=== PATIENT | female | born 1950 | race Caucasian/White ===

== ENCOUNTER 2020-08-13 15:27 | Inpatient (IN) | payer OTHER ==
[2020-08-13] VITALS (9 sets, daily range): BP systolic 113–125; BP diastolic 74–80
[~2020-08-13] VITALS: Ht 157.5 cm; Wt 72.4 kg
[~2020-08-13 15:27] MED LIST: ALBUTEROL2.5 MG/0.5 IH; BACTRIM DS TAB1 EAC1 PO; BROVANA15 MCG/2 M INH; DALIRESP250 MCG PO; ENOXAPARIN40 MG/0.1 SUBQ; FLEXERIL PO; GABAPENTIN 100100 MG PO; IPRAT-ALBUT 0.5-3 ML INH; KLOR-CON 1010 MEQ PO; LASIX 40 MG TAB40 MG PO; LEVAQUIN 500 M500 M2 PO; LIPITOR40 MG PO; LISINOPRIL20 MG; MAGNESIUM250 M1 PO; MOBIC15 MG PO; NORVASC10 MG PO; OXYCODONE HCL 55 MG PO; PREDNISONE 10 M10 M1 PO; PREDNISONE 10 M10 MG PO; PREDNISONE 20 M20 MG PO; PREDNISONE50 MG PO; PROAIR HFA8.5 GM INH; QUINAPRIL 20 MG20 MG PO; SPIRIVA INH; STELARA45 MG/0.5; SYMBICORT160 MCG/4. INH; TRAMADOL 50 MG50 MG PO; VENTOLIN HFA 1818 GM INH; VITAMIN D3125 MC2 PO
--- NOTE | 2020-08-13 17:36 | NUR ---
PATIENT ARRIVED TO UNIT AT 1721. PATIENT ON LEVOPHED GTT @ 4, PRECEDEX GTT @1.4, VERSED GTT @7 & FENTANYL @100. DR MCCORMICK PAGED, PAGED BACK AT 1738. DR. MCCORMICK TO COME SEE PATIENT. CXR ORDERED.
[2020-08-13 18:48] LABS: HEMATOCRIT 26.4 % (37.0-47.0); HEMOGLOBIN 8.8 gm/dL (12.0-15.0); MCHC 33.2 g/dL (28.0-37.0); MCV 87.4 fL (80.0-100.0); PLATELET COUNT 101 thou/uL (150-400); RBC 3.02 mil/uL (4.20-5.00); RDW 14.2 % (10.5-14.5); WBC 24.6 thou/uL (4.0-11.0)
[2020-08-13 19:04] LABS: ALBUMIN 2.5 g/dL (3.4-5.0); CALCIUM 7.5 mg/dL (8.5-10.1); CREATININE 0.4 mg/dL (0.6-1.0); POTASSIUM 4.1 mmol/L (3.5-5.1); TOTAL BILIRUBIN 0.5 mg/dL (0.2-1.0); TOTAL PROTEIN 4.8 g/dL (6.4-8.2)
[2020-08-13 19:16] LABS: ABSOLUTE NEUTROPHILS 23.9 thou/uL (1.4-8.2)
[2020-08-14] VITALS (14 sets, daily range): BP systolic 67–141; BP diastolic 47–87
[2020-08-14 03:15] LABS: HEMATOCRIT 25.3 % (37.0-47.0); HEMOGLOBIN 8.3 gm/dL (12.0-15.0); LYMPHOCYTES 2.9 % (24.0-44.0); MCH 28.7 pg (26.0-34.0); MCHC 32.8 g/dL (28.0-37.0); MCV 87.6 fL (80.0-100.0); MONOCYTES 2.2 % (1.0-8.0); PLATELET COUNT 91 thou/uL (150-400); POLYS 94.9 % (36.0-66.0); RBC 2.89 mil/uL (4.20-5.00); RDW 14.2 % (10.5-14.5); WBC 15.8 thou/uL (4.0-11.0)
--- NOTE | 2020-08-14 03:17 | NUR ---
Patient intubated and sedated. Temp 94.3, mc hagger on & now 97.4.new patient consult called to Dr. Magallanes. reviewing patient chart, new orders given and implemented, plans for a Bronchoscopy in AM.KUB results shows gut full of stool, Relistor given per orders, no BM noted.OG to LIS.
[2020-08-14 03:21] LABS: ALBUMIN 2.2 g/dL (3.4-5.0); CALCIUM 7.6 mg/dL (8.5-10.1); CREATININE 0.5 mg/dL (0.6-1.0); MAGNESIUM 2.1 mg/dL (1.8-2.4); TOTAL BILIRUBIN 0.5 mg/dL (0.2-1.0); TOTAL PROTEIN 4.6 g/dL (6.4-8.2)
[2020-08-14 04:02] LABS: PLATELET ESTIMATE DECREASED
--- NOTE | 2020-08-14 17:18 | NUR ---
ASSUMED CARE @ 0700 08/14/20, PT ASSESSMENTS AND VSS COMPLETE PER ICU PROTOCOL. PT ENCOUNTERED ON PRECEDEX, FENTANYL AND VERSED FOR VENT MANAGMENT. FIOS DOWN TO 90% FROM 100%, PT ABLE TO TOLERATE SATS IN 99-100. BRONCH PERFORMED THIS AM, NO COMPLICATIONS NOTED. DR DUGAN ROUNDED THIS AM, ORDERS RECIEVED TO INCREASED LOVENOX DOSE TO 1MG/KG PER THERAPEUTIC DOSE, PHARM Kevan JOSHI CALLED TO CLARIFY. SISTER THEO SPEAR HERE FROM 1130 -1600 TO VISIT WITH THE PT.
[2020-08-15] VITALS (11 sets, daily range): BP systolic 85–161; BP diastolic 55–82
--- NOTE | 2020-08-15 03:32 | NUR ---
PT IS SEDATED WITH VERSED, FENTANYL, AND PRECEDEX. SHE DOES RESPOND SLIGHTLY TO NOXIOUS STIMULI. BILATERAL WRIST RESTRAINTS IN PLACE. LEVO GTT TITRATED DOWN TO 1MCG/MIN TO KEEP MAP >60. PT HAS GENERALIZED EDEMA, PARTICULARLY IN BILATERAL ARMS. UO ADEQUATE VIA WAGNER. TOLERATING VENT WELL; REMAINS ON 80% FIO2. REPOSITIONED TO PREVENT SKIN BREAKDOWN. SEBLE HUGGAR IN PLACE ORAL TEMP WAS CONSISTENTLY AROUND 96.5. PROGRESSING VERY SLOWLY TOWARD POC GOALS. WILL CONTINUE TO MONITOR.
--- NOTE | 2020-08-15 11:10 | NUR ---
Recommend tube feed of vital AF 1.2 at goal of 60ml/hr. Defer fluid needs to physician
--- NOTE | 2020-08-15 12:00 | NUR ---
PT ON SEDATION VACATION SINCE O800. PT JUST COMPLETED RESP TREATMENT PER RT. THICK MODERATE AMOUNT SECRETIONS SUCTIONED, RESP LABORED, RR-32, SBP IN 200'S. NO RELIEF AFTER SUCTIONING, REPOSITIONING. SEDATION RESTARTED FOR PT COMFORT, SEE MARS FOR DETAILS. SUCTIONED AGAIN CONTINUING TO OBTAIN THICK SECRETIONS.
--- NOTE | 2020-08-15 15:16 | NUR ---
chart review. pt intubated, tf for nutritional support. unable to visit with her. cm spoke with sister fabricio via phone call. intro to cm and transition of care ie rehab and hh. sister reported, she lives alone in house. has cane and walker from broken leg last june. she independent at home. had hh in past. not sure who it was with but then she went to outpt therapy for leg. out aunt and cousin live 2 miles away and visit her at home. then i am about 10 miles away. she going to quiet smoking now, she was trying but then covid hit and little stressful for everyone. thank you for calling. we where shocked at the visitor policy here since came from [facility] and here is very different, would have been nice to know that before coming here. i will be the designated visitor"/sister fabricio. will cont following as needed for dc needs.
[2020-08-15 16:54] LABS: BE(vivo) 5.2 mmol/L (-2 to +3); HCO3 29.5 mmol/L (22.0-26.0); PCO2 41.9 mmHg (35.0-45.0); pH 7.465 (7.360-7.450); sO2 94.7 % (92.0-98.0)
--- NOTE | 2020-08-15 17:47 | NUR ---
RETURNED CALL TO DENTON, GRAND-DAUGHTER AT 1400. UPDATED ON PT STATUS INCLUDING DECREASING OF FI02 AND PEEP ON VENT, SEDATION VACATION FOR SEVERAL HOURS PRIOR TO RESTARTING SEDATION, OBTAINED THICK SECRETIONS PER ETT SEVERAL TIMES THROUGHOUT SHIFT. SMALL AMOUNT PROGRESS WITHIN LENGTHY RECOVERY PROCESS REINFORCED TO DENTON. QUESTIONS ANSWERED TO UNDERSTANDING. PT RESPONDED TO RELISTOR- HAD LARGE JELLY LIKE STOOL. GOWN, ENTIRE BED, SCDS CHANGED, BATH COMPLETED. L RADIAL AJ OOZING- DRESSING REAPPLIED, ARM BOARD REMOVED, PRESSURE HELD @ 5 MIN, GUAZE PRESSURE DRESSING AND NEW WRIST RESTRAINT REAPPLIED. GROIN MOIST AND REDDENED, OPEN TO AIR, FAN CIRCULATING IN ROOM.
--- NOTE | 2020-08-15 19:50 | NUR ---
RECEIVED PATIENT REPORT FROM CHERELLE BURTON. ASSUMED PATIENT CARE AT THIS TIME.
[2020-08-16] VITALS (46 sets, daily range): BP systolic 89–172; BP diastolic 48–91
--- NOTE | 2020-08-16 09:47 | NUR ---
PATIENT CURRENTLY ON CPAP TRAIL, TOLERATING WELL. LEFT RADIAL AJ DISCONTINUED. CLOTTED OFF, NOT FLUSING, INACCURATE READINGS. PT REMAINS LIGHTLY SEDATED ON PRECEDEX AND FENTANYL GTT FOR VENT MANAGEMENT.
[2020-08-16 10:38] LABS: BE(vivo) 6.2 mmol/L (-2 to +3); HCO3 30.4 mmol/L (22.0-26.0); PCO2 42.5 mmHg (35.0-45.0); PO2 89.7 mmHg (80.0-100.0); pH 7.473 (7.360-7.450); sO2 97.3 % (92.0-98.0)
[2020-08-16 14:41] LABS: HEMATOCRIT 26.6 % (37.0-47.0); MCH 29.4 pg (26.0-34.0); MCHC 33.7 g/dL (28.0-37.0); MCV 87.1 fL (80.0-100.0); RBC 3.06 mil/uL (4.20-5.00); RDW 14.5 % (10.5-14.5); WBC 9.8 thou/uL (4.0-11.0)
[2020-08-16 14:49] LABS: CALCIUM 7.8 mg/dL (8.5-10.1); CREATININE 0.3 mg/dL (0.6-1.0); POTASSIUM 3.7 mmol/L (3.5-5.1)
[2020-08-16 15:36] LABS: PHOSPHORUS 2.1 mg/dL (2.5-4.9)
--- NOTE | 2020-08-16 15:45 | NUR ---
SPOKE WITH DR. GARCIA ABOUT PATIENTS HTN, ORDERS GIVEN FOR HYDRALAZINE PRN FOR SBP>160. MEDICATION ADMINISTERED AND IMMEDIATELY PATIENT BECAME TACHYCARDIC, TACHYPNEIC, DIAPHORETIC, FLUSHED AND EYES SWOLLEN. PROVIDER NOTIFED. ORDERS FOR ONE TIME DOSE ATIVAN, STEROID AND BENADYRL GIVEN. STAT LABS AND EGK DONE. DR. GRANT NOTIFIED WELL. AFTER ADMINISTRATION OF MEDICATIONS PATIENT NOW SINUS RHYTHM AND LESS TACHYPENIC. FAMILY UPDATED. HYDRALAZINE CODED AND ALLERGY AND DISCONTINUED FROM EMAR
[2020-08-17] VITALS (33 sets, daily range): BP systolic 69–151; BP diastolic 44–87
[2020-08-17 05:28] LABS: ABSOLUTE NEUTROPHILS 6.1 thou/uL (1.4-8.2); HEMATOCRIT 21.9 % (37.0-47.0); HEMOGLOBIN 7.4 gm/dL (12.0-15.0); LYMPHOCYTES 2.9 % (24.0-44.0); MCH 29.6 pg (26.0-34.0); MCHC 33.7 g/dL (28.0-37.0); MCV 87.9 fL (80.0-100.0); MONOCYTES 2.5 % (1.0-8.0); PLATELET COUNT 85 thou/uL (150-400); POLYS 94.6 % (36.0-66.0); RBC 2.49 mil/uL (4.20-5.00); RDW 14.8 % (10.5-14.5); WBC 6.5 thou/uL (4.0-11.0)
[2020-08-17 05:34] LABS: BE(vivo) 2.5 mmol/L (-2 to +3); HCO3 26.7 mmol/L (22.0-26.0); PCO2 40.1 mmHg (35.0-45.0); PO2 82.8 mmHg (80.0-100.0); pH 7.442 (7.360-7.450); sO2 96.5 % (92.0-98.0)
[2020-08-17 05:44] LABS: ALBUMIN 1.6 g/dL (3.4-5.0); CALCIUM 6.8 mg/dL (8.5-10.1); CREATININE 0.4 mg/dL (0.6-1.0); MAGNESIUM 1.9 mg/dL (1.8-2.4); POTASSIUM 3.5 mmol/L (3.5-5.1); TOTAL BILIRUBIN 0.4 mg/dL (0.2-1.0)
--- NOTE | 2020-08-17 07:36 | EKG ---
[facility] [place] [address] [place] [address] ELECTROCARDIOGRAM REPORT Name: REBECCA CLAIRE Room #: 247-P ADM IN M.R.#: [id number] Admission: 08/13/20 Attend Phys: Christopher Kiser MD Discharge: Date of : 54 Report #: [id number] THIS REPORT FOR: cc: Allison Gilliam Stephanie P. DO Santiago, Patrick MD [facility] ~ THIS REPORT FOR: //name// [facility] Test Date: 2020-08-16 Test Time: 15:10:34 Pat Name: REBECCA CLAIRE Department: Room: 247 P Gender: F Plant Custodian: Davonte KIRK : 1950 Requested By: Vidal Jamison Order Number: [id number] MD: Pipo Barber Measurements Intervals [place] Rate: 120 P: 89 WI: 126 QRS: 77 QRSD: 91 T: 58 QT: 306 QTc: 433 Interpretive Statements Sinus tachycardia Ventricular premature complex Aberrant conduction of SV complex(es) Low voltage, extremity and precordial leads No previous ECG available for comparison Electronically Signed On 08-17-2020 7:36:19 CDT by Pipo Barber [email or web address] <ELECTRONICALLY SIGNED> By: Pipo Barber MD, FACC 08/17/20 0736 1510 Pipo Barber MD, FAC /EPI
--- NOTE | 2020-08-17 07:37 | NUR ---
ASSESSMENTS CHARTED, MEDS CHARTED GIVEN. PATIENT STILL ON VENT, BOLUS TUBE FEED WITH WATER BOLUS Q6. RESTRAINTS IN PLACE. FALL PRECAUTIONS IN PLACE.
--- NOTE | 2020-08-17 11:39 | NUR ---
ON THE VENT WITH LIGHT SEDATION, DURING SEDATION VACATION PATIENT GOT TACHYCARDIC AND TACHYPNIC AND RESTLESS. HYPOTENSIVE AND STARTED ON LOW DOSE LEVO GTT FOR BP SUPPORT. OGT WITH BOLUS FEEDINGS Q4HRS. DESIGNATED VISITOR WAS HERE EARLIER AND WAS UPDATED BY RN.
[2020-08-17 15:00] LABS: % SATURATION 46 % (20-39); IRON 63 ug/dL (50-170); TIBC 136 ug/dL (250-450)
[2020-08-17 15:29] LABS: FOLIC ACID 11.8 ng/mL (8.6-58.9)
--- NOTE | 2020-08-17 19:18 | NUR ---
PT NOT PROGRESSING TOWARDS GOALS, UNABLE TO CPAP TODAY. NOT FOLLOWING COMMANDS CONSISTANTLY.
[2020-08-18] VITALS (28 sets, daily range): BP systolic 78–139; BP diastolic 39–88
[2020-08-18 04:07] LABS: BE(vivo) 4.1 mmol/L (-2 to +3); HCO3 27.7 mmol/L (22.0-26.0); PCO2 37.6 mmHg (35.0-45.0); PO2 58.1 mmHg (80.0-100.0); pH 7.485 (7.360-7.450); sO2 92.2 % (92.0-98.0)
[2020-08-18 05:44] LABS: BASOPHILS 0.1 % (0.0-2.0); HEMATOCRIT 25.5 % (37.0-47.0); HEMOGLOBIN 8.5 gm/dL (12.0-15.0); LYMPHOCYTES 3.5 % (24.0-44.0); MCHC 33.2 g/dL (28.0-37.0); MCV 87.4 fL (80.0-100.0); MONOCYTES 4.1 % (1.0-8.0); PLATELET COUNT 106 thou/uL (150-400); POLYS 92.3 % (36.0-66.0); RBC 2.92 mil/uL (4.20-5.00); RDW 15.4 % (10.5-14.5); WBC 9.7 thou/uL (4.0-11.0)
[2020-08-18 05:51] LABS: ALBUMIN 2.6 g/dL (3.4-5.0); CALCIUM 7.9 mg/dL (8.5-10.1); CREATININE 0.4 mg/dL (0.6-1.0); MAGNESIUM 2.1 mg/dL (1.8-2.4); POTASSIUM 3.5 mmol/L (3.5-5.1); TOTAL BILIRUBIN 0.5 mg/dL (0.2-1.0)
[2020-08-18 11:36] LABS: BE(vivo) 5.1 mmol/L (-2 to +3); HCO3 29.5 mmol/L (22.0-26.0); PCO2 42.7 mmHg (35.0-45.0); PO2 65.3 mmHg (80.0-100.0); pH 7.457 (7.360-7.450); sO2 93.7 % (92.0-98.0)
--- NOTE | 2020-08-18 16:15 | NUR ---
PT WITH LOW URINE OUTPUT, DR. DUGAN AND DR. GRANT AWARE. ONETIME DOSE OF IV LASIX AND ONETIME DOSE OF ALBUMIN GIVEN WITH NOT MUCH IMPROVEMENT. ORDERS TO EXCHANGE PICC LINE FROM RIGHT UPPER ARM TO LEFT UPPER ARM. CONSULT FOR GENERAL SURGERY, DR. EVERETT SPOKE WITH PATIENTS FAMILY ABOUT TRACH/PEG PLACEMENT. PER FAMILY REQUEST WOULD LIKE TO WAIT UNTIL SATURDAY. DR. EVERETT AWARE.
--- NOTE | 2020-08-18 16:38 | NUR ---
cm returned call to daughter fabricio [phone]. she wanted to know if visiting rules are ever able to be changed allowing like 2 people to visit a the same time, asking because my brother would like to be her on saturday when mom supposed to get her trach and peg. if you could ask and let me know that would be great, thanks for retuning my call per fabricio. cm passed on question to cm tumbling and rolling supervisor. will cont following as needed for dc needs.
--- NOTE | 2020-08-18 19:58 | NUR ---
RUE PICC DISCONTINUED. NEW PICC PLACED TO LUE BASILIC VEIN. RISK, BENEFITS, AND ALTERNATIVE TREATMENT DISCUSSED WITH THE PATIENT'S FAMILY. CONSENT OBTAINED. TRIPLE LUMEN 5FR PICC PLACED TO LUE BASILIC VEIN. ONE STICK AND NO COMPLICATIONS. PATIENT TOLERATED WELL. PICC LENGTH =38CM. EXT=1CM. CHEXT XRAY CONFIRMED PLACEMENT WITH TIP OF PICC IN DISTAL SVC. ROLL UP MACHINE OPERATOR NOTIFIED OKAY TO USE PICC.
[2020-08-19] VITALS (38 sets, daily range): BP systolic 90–164; BP diastolic 49–89
--- NOTE | 2020-08-19 02:40 | NUR ---
ASSESSMENT: PT REMAIN ALERT, PRECIADO, FOLLOW SIMPLE COMMANDS. PUPILS EQUAL/REACTIVE. SR PER MONITOR. AFEBRILE. US OF KIDNEYS DONE. WAGNER PATENT WITH ADEQUATE AMTS OF UO. 2000 ML WAS EMPTIED AT THE BEGINNING OF THE SHIFT AND 2000 ML MORE AT APPROXIMATELY 0200. VENT SETTINGS: TV-500 RATE-14 PEEP-5 FIO2 40%. TOLERATING BOLUS FEEDINGS PER OG TUBE. NO BM'S THUS FAR. UPPER EXTREMITIES WEEPING, ELEVATED ON PILLOWS. POSSIBLE TRACH/PEGGED ON SATURDAY. CAROLYN PICC PATENT IN ALL PORTS. SLOW PROGRESS, WILL CONTINUE TO MONITOR.
[2020-08-19 05:52] LABS: HEMATOCRIT 24.1 % (37.0-47.0); HEMOGLOBIN 7.9 gm/dL (12.0-15.0); MCH 29.1 pg (26.0-34.0); MCV 88.4 fL (80.0-100.0); RBC 2.73 mil/uL (4.20-5.00); RDW 15.4 % (10.5-14.5); WBC 8.2 thou/uL (4.0-11.0)
[2020-08-19 06:19] LABS: CREATININE 0.4 mg/dL (0.6-1.0); POTASSIUM 3.2 mmol/L (3.5-5.1)
--- NOTE | 2020-08-19 15:04 | NUR ---
pt remains intubated with tf for nutritional support. possible trach and peg on saturday, cm returned phone call to daughter fabricio who still wants to know if her brother can come to surgery waiting room for surgery and when giving all good he will leave. mane sent to cm furnace room supervisor and cno. cm spoke with or and she not down for trach peg on saturday. cm spoke with bedside nurse who states surgeon say saturday or sat for trach and peg.
--- NOTE | 2020-08-19 16:17 | NUR ---
TALKED TO PATIENT DPOA SISTER ANIKA. ANIKA ASKED IF PATIENT'S SON ABIMBOLA CAN COME ON THE DAY OF SURGERY TO THE HOSPITAL AND WAIT IN THE SURGERY WAITING ROOM. AFTER DISCUSSING WITH CUTTING MACHINE TENDER AND LEAD BLENDER, ANIKA AND ZEESHAN BOTH WERE INFORMED THAT PT'S SON ABIMBOLA CAN COME TO THE HOSPITAL ON THE DAY OF SURGERY AND SIT IN THE SURGERY WAITING ROOM. SINCE ABIMBOLA IS NOT THE DESIGNATED VISITOR, HE WONT BE ABLE TO COME TO ICU. 2 PEOPLE ARE NOT ALLOWED IN THE SURGERY ROOM AT THE SAME TIME. SO ZEESHAN CAN VISIT ONLY AFTER ABIMBOLA LEAVES THE HOSPITAL.
--- NOTE | 2020-08-19 18:40 | NUR ---
PT FOLLOWING COMMANDS. PT CPAP FROM 1430 TO 1721. PT TOLERATED WELL. PT OFF VERSED FOR SEDATION. PT CALM. STARTED CONTINUOUS TUBE FEED. CTA THIS AM. PLAN FOR TRACH/PEG ON SATURDAY-NOT SCHEDULED YET THE FAMILY WANTS TO SEE HOW THE PATIENT DOES OVER THE WEEKEND.
[2020-08-20] VITALS (24 sets, daily range): BP systolic 112–145; BP diastolic 62–84
[2020-08-20 05:29] LABS: BE(vivo) 7.7 mmol/L (-2 to +3); HCO3 30.3 mmol/L (22.0-26.0); PCO2 34.1 mmHg (35.0-45.0); PO2 111.7 mmHg (80.0-100.0); pH 7.566 (7.360-7.450); sO2 98.6 % (92.0-98.0)
[2020-08-20 06:28] LABS: ABSOLUTE NEUTROPHILS 5.8 thou/uL (1.4-8.2); BASOPHILS 0.1 % (0.0-2.0); EOSINOPHILS 0.2 % (0.0-3.0); HEMATOCRIT 22.7 % (37.0-47.0); HEMOGLOBIN 7.7 gm/dL (12.0-15.0); MCH 29.8 pg (26.0-34.0); MCV 87.8 fL (80.0-100.0); MONOCYTES 2.9 % (1.0-8.0); PLATELET COUNT 63 thou/uL (150-400); POLYS 87.8 % (36.0-66.0); RBC 2.58 mil/uL (4.20-5.00); RDW 15.5 % (10.5-14.5); WBC 6.6 thou/uL (4.0-11.0)
[2020-08-20 06:50] LABS: ALBUMIN 2.5 g/dL (3.4-5.0); CALCIUM 8.4 mg/dL (8.5-10.1); CREATININE 0.3 mg/dL (0.6-1.0); MAGNESIUM 1.9 mg/dL (1.8-2.4); POTASSIUM 3.4 mmol/L (3.5-5.1); TOTAL BILIRUBIN 0.7 mg/dL (0.2-1.0); TOTAL PROTEIN 4.7 g/dL (6.4-8.2)
--- NOTE | 2020-08-20 21:26 | NUR ---
Pt lightly sedated with Precedex and Fentanyl infusions. Pt does follow commands but has generalized weakness. VSS. Tolerating tube feedings. Daughter (Franchesca) at bedside much of the day. Pt did not tolerate CPAP for more than a few minutes before becoming tachypnic. Continue to supprt and work toward goals. Report given to oncoming RN.
[2020-08-21] VITALS (37 sets, daily range): BP systolic 76–159; BP diastolic 39–94
[2020-08-21 05:30] LABS: BE(vivo) 9.1 mmol/L (-2 to +3); HCO3 32.9 mmol/L (22.0-26.0); PCO2 41.8 mmHg (35.0-45.0); PO2 106.5 mmHg (80.0-100.0); pH 7.514 (7.360-7.450); sO2 98.3 % (92.0-98.0)
[2020-08-21 06:02] LABS: ABSOLUTE NEUTROPHILS 5.5 thou/uL (1.4-8.2); BASOPHILS 0.2 % (0.0-2.0); EOSINOPHILS 0.3 % (0.0-3.0); HEMATOCRIT 21.6 % (37.0-47.0); HEMOGLOBIN 7.2 gm/dL (12.0-15.0); LYMPHOCYTES 9.4 % (24.0-44.0); MCH 29.6 pg (26.0-34.0); MCHC 33.4 g/dL (28.0-37.0); MCV 88.4 fL (80.0-100.0); MONOCYTES 2.9 % (1.0-8.0); PLATELET COUNT 59 thou/uL (150-400); POLYS 87.2 % (36.0-66.0); RBC 2.44 mil/uL (4.20-5.00); RDW 15.7 % (10.5-14.5); WBC 6.3 thou/uL (4.0-11.0)
[2020-08-21 06:16] LABS: ALBUMIN 2.2 g/dL (3.4-5.0); CALCIUM 7.6 mg/dL (8.5-10.1); TOTAL BILIRUBIN 0.6 mg/dL (0.2-1.0); TOTAL PROTEIN 4.6 g/dL (6.4-8.2)
[2020-08-21 06:24] LABS: CREATININE 0.2 mg/dL (0.6-1.0)
--- NOTE | 2020-08-21 14:40 | NUR ---
Low urine output. Call placed to Dr Jamison. Also clarified possible blood transfusion. Orders received for bladder scan and CBC.
--- NOTE | 2020-08-21 15:15 | NUR ---
Bladder scan showed 902 ml of urine in bladder. Wiley flushed and balloon let down and reinflated. Wiley began draining better. Will continue to monitor output and rescan.
[2020-08-21 16:33] LABS: HEMOGLOBIN 7.7 gm/dL (12.0-15.0); MCH 29.5 pg (26.0-34.0); MCHC 33.5 g/dL (28.0-37.0); MCV 88.1 fL (80.0-100.0); RBC 2.61 mil/uL (4.20-5.00); RDW 15.5 % (10.5-14.5); WBC 7.7 thou/uL (4.0-11.0)
--- NOTE | 2020-08-21 18:30 | NUR ---
Bladder scan repeated with < 100 ml this time. 1100 ml of urine from resendez since catheter flushed. Pt currently resting. VSS. One stool this shift. Specimen was discarded in dirty linen before sample was obtained for occult blood. Repeat Hgb came back 7.7.
[2020-08-22] VITALS (72 sets, daily range): BP systolic 64–189; BP diastolic 35–96
--- NOTE | 2020-08-22 05:56 | NUR ---
Patient progressing towards plan of care as evidenced by plan for possible trach and peg on Saturday. Patient able to follow commands and interact with nursing staff. Patient tolerating tube feeding and sedation as documented. Nurse to continue to monitor patient status.
--- NOTE | 2020-08-22 08:45 | NUR ---
discussed risks and benefits of 08/22 thoracentesis and 08/23 trach/peg placement. answered questions, obtained telephone consent. pt transferred from [facility], per phone call requested copy of dpoa. Agatha, medical records stated not scanned into their system, unavailable. returned call to Camille HEMPHILL requesting copy. She stated she would go to her sister's residence to obtain copy.
--- NOTE | 2020-08-22 10:58 | NUR ---
pt going to have thoracentesis today with possible trach and peg tomorrow. bedside nurse has already spoke with fabircio and family about 1 visitor rule during covid.
[2020-08-22 11:41] LABS: CLARITY CLEAR; COLOR YELLOW; SOURCE LEFT CHEST; TOTAL VOLUME 60 mL
[2020-08-22 12:28] LABS: BF NUCLEATED CELLS 243 /mm3; BF RBC 130 /mm3
[2020-08-22 13:15] LABS: BF MACROPHAGE 11 %; BF NEUTROPHILS 65 %
[2020-08-22 15:41] LABS: SOURCE LEFT CHEST
--- NOTE | 2020-08-22 15:51 | EKG ---
[facility] [address] [address] ELECTROCARDIOGRAM REPORT Name: REBECCA CLAIRE Room #: 245-P ADM IN M.R.#: [id number] Admission: 08/13/20 Attend Phys: Christopher Kiser MD Discharge: Date of : 54 Report #: [id number] THIS REPORT FOR: cc: Allison Gilliam Stephanie P. DO Santiago, Patrick MD [facility] ~ THIS REPORT FOR: //name// [facility] Test Date: 2020-08-22 Test Time: 14:54:23 Pat Name: REBECCA CLAIRE Department: Room: 245 P Gender: F Wind Operations Supervisor: MYRA : 1950 Requested By: Vidal Jamison Order Number: [id number] : Pipo Barber Measurements Intervals [place] Rate: 72 P: WI: QRS: 92 QRSD: 102 T: 84 QT: 380 QTc: 416 Interpretive Statements NSR Low voltage, extremity and precordial leads Nonspecific T abnrm, anterolateral leads Compared to ECG 08/16/2020 15:10:34 Right-axis deviation now present Sinus tachycardia no longer present Ventricular premature complex(es) no longer present Aberrant conduction of supraventricular beat(s) no longer present Electronically Signed On 08-22-2020 15:51:28 CDT by Pipo Barber [email or web address] <ELECTRONICALLY SIGNED> By: Pipo Barber MD, [facility] 08/22/20 1551 1454 1454 Pipo Barber MD, [facility] /EPI
[2020-08-23] VITALS (89 sets, daily range): BP systolic 111–158; BP diastolic 62–87
[2020-08-23 06:45] LABS: HEMATOCRIT 20.2 % (37.0-47.0); HEMOGLOBIN 6.8 gm/dL (12.0-15.0); MCHC 33.6 g/dL (28.0-37.0); RBC 2.29 mil/uL (4.20-5.00); WBC 7.2 thou/uL (4.0-11.0)
[2020-08-23 06:46] LABS: MCH 29.6 pg (26.0-34.0); MCV 88.1 fL (80.0-100.0); RDW 15.6 % (10.5-14.5)
[2020-08-23 07:02] LABS: CALCIUM 8.4 mg/dL (8.5-10.1); CREATININE 0.3 mg/dL (0.6-1.0); POTASSIUM 3.9 mmol/L (3.5-5.1)
[2020-08-23 08:51] LABS: HEMOGLOBIN 6.7 gm/dL (12.0-15.0); MCHC 33.6 g/dL (28.0-37.0); RBC 2.27 mil/uL (4.20-5.00)
[2020-08-23 08:52] LABS: MCH 29.7 pg (26.0-34.0); MCV 88.3 fL (80.0-100.0); RDW 15.7 % (10.5-14.5); WBC 6.7 thou/uL (4.0-11.0)
--- NOTE | 2020-08-23 12:07 | NUR ---
PATIENT LEFT UNIT FOR SURGERY AROUND 1037. PATIENT RETURNED TO UNIT AROUND 1200. PATIENT STILL DROWSY.
[2020-08-24] VITALS (40 sets, daily range): BP systolic 106–154; BP diastolic 55–89
[2020-08-24 06:13] LABS: HEMATOCRIT 25.6 % (37.0-47.0); MCH 30.4 pg (26.0-34.0); MCHC 34.2 g/dL (28.0-37.0); MCV 88.8 fL (80.0-100.0); RBC 2.88 mil/uL (4.20-5.00); WBC 6.3 thou/uL (4.0-11.0)
[2020-08-24 06:16] LABS: CALCIUM 8.1 mg/dL (8.5-10.1); CREATININE 0.3 mg/dL (0.6-1.0)
[2020-08-24 06:30] LABS: HEMOGLOBIN 8.7 gm/dL (12.0-15.0)
--- NOTE | 2020-08-24 06:51 | NUR ---
Patient trached and pegged yesterday and did well throughout the night. Pt on Fentanyl and Precedex gtt for comfort only. Vital signs remain stable. Pt tolerating tube feeding and up to 40mL/hr with a goal of 60mL/hr. Pt remains in restraints. Skin intact but annalise area still very excoriated. PEG and trach sites still fresh with dried blood around the site. Pt was afebrile throughout the night with no signs of infection. Pt has very flat affect and seems withdrawn. This RN gave report to JOSEPHINE Soto.
[2020-08-24 11:18] LABS: BE(vivo) 4.9 mmol/L (-2 to +3); HCO3 28.7 mmol/L (22.0-26.0); PCO2 39.1 mmHg (35.0-45.0); PO2 99.3 mmHg (80.0-100.0); pH 7.483 (7.360-7.450); sO2 97.9 % (92.0-98.0)
--- NOTE | 2020-08-24 12:06 | PATH ---
[facility] [address] [place] [address] PATHOLOGY RPT PROCEDURE Name: REBECCA CLAIRE Room #: 245-P ADM IN M.R.#: [id number] Admission: 08/13/20 Date of : 54 Discharge: Report #: [id number] Path Case #: [id number] Note [facility] Accession Number: [id number] TESTS RESULT FLAG UNITS REF RANGE LAB Clinician Provided Cytology Information No. of containers..01 Other (Miscellaneous) Source: 01 PLEURAL FLUID DIAGNOSIS: 02 PLEURAL FLUID NEGATIVE FOR MALIGNANT CELLS. THIS INTERPRETATION INCLUDES EVALUATION OF A CELL BLOCK. REACTIVE MESOTHELIAL CELLS ARE PRESENT. MILD CHRONIC INFLAMMATION ALONG WITH MACROPHAGES. COMMENT: Examination shows a few degenerated appaearing cells with high nuclear to cytoplasmic ratio. Multiple properly controlled immunohistochemical stains are performed on the formalin fixed cell block material. The cells show reactivity with CD68. CD45 shows reactivity within the lymphocytes. TTF1 and BerEP4 show no reactivity. Calretinin and Desmin show reactivity in the mesothelial cells identified within the background. CD56 is nonreactive. Findings support the diagnosis rendered. Pathologist ICD10: 02 J90 Signed out by: Heather Pastrana MD, Pathologist NPI- [id number] Performed by: 01 Ashly Galloway, Executive Vice President And Chief Financial Officer (ASCP) Gross description: 01 15ML, CLR DEDRA YELLOW, 1 TP 1 CB /LCS 08/24/2020 1102 Local FLAG LEGEND: L-Low Normal,H-High Normal,LL-Alert Low,HH-Alert High <-Panic Low,>-Panic High,A-Abnormal,AA-Critical Abnormal Performed at: 01 [facility] [address] [place] [address] Mikey Cortez MD, [address] [address] Heather Pastrana MD, Specimen Comment: A courtesy copy of this report has been sent to [phone], [address] [address] PATHOLOGY RPT PROCEDURE Name: REBECCA CLAIRE Room #: 245-P [facility] IN M.R.#: [id number] Admission: 08/13/20 Date of : 54 Discharge: Report #: [id number] Path Case #: [id number] Specimen Comment: [id number], Specimen Comment: Report sent to ,DR SILVESTRE / DR THAKUR Performed at: [address], [place], [place] [id number] MD Mikey Cortez MD Phone: [phone]
--- NOTE | 2020-08-24 17:50 | NUR ---
ON THE VENT PER TRACH, VITALS STABLE. PLACED ON CPAP EARLIER TODAY BY RT WILLY AND TOLERATED WELL, ABG OBTAINED AND REPORTED TO DR. YI. PATIENT ABLE TO NOD TO Y/N QNS AND MOUTHING WORDS, STATING SHE WANTS TO GO HOME. TOLERATING TUBEFEEDING PER PEG. ABD BINDER APPLIED. WAGNER AND FMS DOCUMENTED. DAUGHTER VISITED AND UPDATED BY DR. LÓPEZ AND DR. YI. [facility] CONSULTED FOR DC PLANNING TO [facility].
[2020-08-24 19:07] LABS: BODY FLUID ALBUMIN 1.1 g/dL (Not Estab.); BODY FLUID AMYLASE 38 U/L (()); BODY FLUID GLUCOSE 113 mg/dL (()); BODY FLUID LDH 143 IU/L (())
[2020-08-25] VITALS (19 sets, daily range): BP systolic 134–170; BP diastolic 78–98
--- NOTE | 2020-08-25 03:40 | NUR ---
Patient AAO X3 with flat affect, follows commands, and mouths words. Denies pain.VSS, Temp 99.9 oral.3+ edema BUE, elevated on pillows, pads changed D/T weeping.Peg tube intack & patent. No gastric residual noted, tolarating T/F well at goal rate of 60ml/hr.
[2020-08-25 06:31] LABS: CREATININE 0.3 mg/dL (0.6-1.0); POTASSIUM 3.3 mmol/L (3.5-5.1)
--- NOTE | 2020-08-25 09:17 | NUR ---
ASSESSMENTS AND INTERVENTIONS DOCCUMENTED. RN ASSUMED CARE AROUND 0700. PATIENT TACHYPNEIC. PATIENT ASKED IF SHE WAS ANXIOUS, PATIENT NODDING. DR. LÓPEZ PAGED. DR. LÓPEZ CALLING BACK. ORDERS RECIEVED. PATIENT RESTING.
--- NOTE | 2020-08-25 14:12 | NUR ---
cm called and spoke with marisel regalado rt [facility] for [facility], [facility]. while education via phone call with fabricio she looked all 3 location up and stated closed [facility] and then [facility]. cm sent referral to [facility] and [facility].
--- NOTE | 2020-08-25 18:32 | HC ---
[facility] [place] [address] [place] [address] CONSULTATION Name: REBECCA CLAIRE Room #: 245-P ADM IN M.R.#: [id number] Admission: 08/13/20 Attend Phys: Christopher Kiser MD Discharge: Date of : 54 Report #: [id number] THIS REPORT FOR: cc: Allison Gilliam Stephanie P. DO Al-Absi, Ahmed I. MD ~ CC: Christopher Gilliam REASON FOR CONSULTATION: Low urine output. REASON FOR PRESENTATION: The patient was transferred from another facility for empyema. HISTORY OF PRESENT ILLNESS: This is a 70-year-old with history of pulmonary fibrosis, COPD. She was admitted to another facility, [facility] on 07/28 and was found to have a parainfluenza virus infection. She was found to have cavitary lesion on her CT and was transferred to our facility for further evaluation and management. Pulmonary had been following her. Currently, the patient has received significant amount of IV fluid and she is running into some issues with anasarca. She was diagnosed to have a pulmonary abscess with Pseudomonas. She was in septic shock and she had Clostridium difficile. It looks like the primary team had issues with diuresing the patient and I was consulted to manage the issue accordingly. PAST MEDICAL HISTORY: 1. This is obtained from the medical chart. The patient is not able to provide me with any history given her current intubation status. 2. Chronic obstructive pulmonary disease. 3. Pulmonary fibrosis. 4. Respiratory failure, oxygen dependent. 5. Pulmonary abscess. 6. Clostridium difficile. 7. Thrombocytopenia. FAMILY HISTORY: Unobtainable given the patient's current mental status. REVIEW OF SYSTEMS: Unobtainable given the patient's current mental status. HOME MEDICATIONS: 1. Albuterol. 2. Atorvastatin. 3. Amlodipine. 4. Potassium. 5. Furosemide. SOCIAL HISTORY: Unobtainable given the patient's current mental status. [facility] [address] [place] [address] CONSULTATION Name: REBECCA CLAIRE Room #: [address] [place] [address] [place] [facility].#: [id number] Admission: 08/13/20 Attend Phys: Christopher Kiser MD Discharge: Date of : 54 Report #: [id number] PHYSICAL EXAMINATION: VITAL SIGNS: Blood pressure is 110/64, pulse rate is 82. HEAD AND NECK: No jugular venous distention. CHEST: Decreased air entry bilaterally with crackles. CARDIOVASCULAR: No rub detected. ABDOMEN: Soft. EXTREMITIES: Lower extremities, +3 edema. Upper extremities, +3 edema. LABORATORY DATA: Reviewed. Sodium 136, potassium 3.2, BUN 26, creatinine 0.4. ASSESSMENT AND PLAN: 1. Low urine output was due to catheter malfunctioning. This was adjusted and the patient made about 5 liters of urine yesterday. She maintains normal kidney function. 2. Replace potassium. 3. Avoid combination of diuretics. See my recommendations regarding the Lasix dosing. 4. No further renal recommendations. I will sign off. <ELECTRONICALLY SIGNED> By: Emma Granado MD 08/25/20 1832 0757 0816 Emma Granado MD /nt
[2020-08-26] VITALS (17 sets, daily range): BP systolic 124–174; BP diastolic 71–99
--- NOTE | 2020-08-26 00:16 | NUR ---
PT awake and alert. Oral temp 100.8, covers removed, ice packs placed, and Dr. Jones notified.Orders given. Blood cultures X2, sputum asparate, and UA send to lab.Tylenol given per orders. Recheck temp 101.4 @ this time, room temp lowered.
[2020-08-26 05:21] LABS: HEMATOCRIT 25.8 % (37.0-47.0); HEMOGLOBIN 8.8 gm/dL (12.0-15.0); MCV 91.1 fL (80.0-100.0); RBC 2.83 mil/uL (4.20-5.00)
[2020-08-26 05:48] LABS: CREATININE 0.3 mg/dL (0.6-1.0)
--- NOTE | 2020-08-26 11:40 | NUR ---
FAXED CLINICAL UPDATE TO [facility] SPOKE WITH ERIKA IN ADM SHE RECEIVED UPDATE. DP TO FOLLOW.
[2020-08-26] MEDS ORDERED: FIRVANQ50 MG/1 ML PER TUBE (12:18)
[2020-08-26] MEDS ORDERED: PULMICORT0.5 MG/21 INH (12:19)
[2020-08-26] MEDS ORDERED: BISACODYL10 MG RECTAL (12:20)
[2020-08-26] MEDS ORDERED: NYAMYC15 GM TOP (12:21)
[2020-08-26] MEDS ORDERED: VITCB500GO PO (12:21)
[2020-08-26] MEDS ORDERED: MEROPENEM1 GM IV (12:22)
[2020-08-26] MEDS ORDERED: PREDNISONE 10 M10 M1 PO (12:22)
[2020-08-26] MEDS ORDERED: FAMOTIDINE 20 M20 MG PO (12:24)
[2020-08-26] MEDS ORDERED: IPRAT-ALBUT 0.5-3 ML INH (12:25)
--- NOTE | 2020-08-26 12:34 | HC ---
[facility] [place] [address] CONSULTATION Name: REBECCA CLAIRE Room #: 245-P ADM IN M.R.#: [id number] Admission: 08/13/20 Attend Phys: Christopher Kiser MD Discharge: Date of : 54 Report #: [id number] THIS REPORT FOR: cc: Allison Gilliam,Franklyn Peña MD ~ CC: Christopher Gilliam DATE OF SERVICE: 08/14/2020 INFECTIOUS DISEASE CONSULTATION ATTENDING PHYSICIAN: Dr. Kiser. REASON FOR EVALUATION: Left-sided lung abscess. HISTORY OF PRESENT ILLNESS: Chart reviewed, patient examined. This is a 70-year-old who was admitted in transfer from [facility]. She has known severe COPD, O2 requiring apparently around 4 liters. This is in part due to fibrosis as well. She was admitted to [facility] earlier this month due to dyspnea. Subsequently, deteriorated, ended up being intubated and put on mechanical ventilatory support, has noted a large left pleural effusion with consolidative pneumonitis, more recently was confirmed to have C. diff positive stools, felt to be colitis. Subsequently, imaging studies progressed and now shows a cavitary lesion involving the left side, was felt to be a lung abscess. Per report, culture had growth of Pseudomonas aeruginosa. She is transferred on broad-spectrum therapy including linezolid as well as meropenem in addition to enteral vancomycin. At this point, she is sedated, maintained on ventilatory support. She is undergoing bronchoscopy for possible therapeutic purposes. ALLERGIES: LISTED TO LATEX, COMPAZINE, MORPHINE, CODEINE, HYDROCODONE, ACETAMINOPHEN, AND AZITHROMYCIN. CURRENT MEDICATIONS: Include famotidine, methylprednisolone, budesonide, vancomycin 500 mg p.o. q.i.d. per tube, ipratropium, albuterol inhaler, ____, enoxaparin, linezolid 600 mg IV q. 12, meropenem 1 g. PAST MEDICAL HISTORY: As noted above, pulmonary fibrosis, severe COPD, O2 requiring; hypertension, chronic anemia, right total knee arthroplasty. SOCIAL HISTORY: Unknown. FAMILY HISTORY: Noncontributory. REVIEW OF SYSTEMS: Unobtainable. [address] [address] CONSULTATION Name: REBECCA CLAIRE Bessy Room #: [address] [place] [address] IN [facility].#: [id number] Admission: 08/13/20 Attend Phys: Christopher Kiser MD Discharge: Date of : 54 Report #: [id number] PHYSICAL EXAMINATION: GENERAL: Again, she is seen immediately after bronchoscopy. She is sedated, maintained on the vent. She is supine. She has ET tube in place, appears somewhat chronically ill, undernourished. VITAL SIGNS: Temperature 97.3, pulse 95, respirations 19, blood pressure has been markedly elevated, although that is in part due to the procedure. NECK: Appears to be supple. LUNGS: Scattered coarse breath sounds. HEART: Regular. I do not appreciate a murmur. ABDOMEN: Soft. Otherwise, no apparent peritoneal signs. GENITOURINARY AND RECTAL: Deferred. LABORATORY DATA: Electrolytes: Sodium 139, potassium 4.1, chloride 102, bicarbonate is 29, anion gap of 8, BUN and creatinine 21 and 0.4, glucose of 129. AST of 59, ALT of 64, albumin 2.5, total protein of 4.8. CBC: White count of 24.6, H and H 8.8 and 26.4, platelets of 101. ASSESSMENT: 1. Pulmonary abscess with apparent isolation of Pseudomonas aeruginosa. 2. C. diff colitis. 3. Severe chronic obstructive pulmonary disease, O2 requiring with pulmonary fibrosis. PLAN: We will continue combination of therapy as prescribed. Based on report, was generally susceptible to antibiotics usually accepted as treatment, may have gained some benefit from the therapeutic trial. There was repeat culture sent. We will await those. Monitor expectantly. We would expect her to have a difficult time being extubated given her overall poor lung function. Try to optimize her nutritional status. ____ expectantly address C. diff colitis as best we are able given the broad spectrum therapy. <ELECTRONICALLY SIGNED> By: Franklyn Lowry MD 08/26/20 1234 [id number] Franklyn Lowry MD /nt
--- NOTE | 2020-08-26 12:54 | NUR ---
per hospitalist lorrie ready for ltac today, per ID possible soft 2 weeks of iv abx. per nolvia will call with bed and time for dc. chart copy requested. pt transport via [facility]. mane spoke with marisel regalado and she agrees with dcp.
--- NOTE | 2020-08-26 14:38 | NUR ---
PT DISCHARGING TODAY TO [facility] FAXED DC ORDERS/SUMMARY TO FACILITY SPOKE WITH ERIKA IN ADM SHE RECEIVED ORDERS. ARRANGED TRANSPORTATION BY AMBULANCE FOR 1700 PT'S FAMILY NOTIFIED AND UNIT CHART COPY BY US. RN TO CALL REPORT TO [phone].
--- NOTE | 2020-08-26 15:48 | NUR ---
ASSUMED CARE AT 0700. ADEQUATE UOP. FMS IN PLACE. AFEBRILE. VENTILATOR SETTINGS UNCHANGED. DAUGHTER CAME IN A LITTLE AFTER NOON AND STAYED WITH THE PATIENT. BOTH PATIENT AND DAUGHTER WERE UPDATED AND EDUCATED ON THE PLAN OF CARE AND PATIENT CONDITION. PATIENT TO BE DISCHARGED AT 1700 TO [place]. TUBE FEEDING RUNNING @ 60. PATIENT PROGRESSING TOWARDS THE PLAN OF CARE.
--- NOTE | 2020-08-26 16:38 | NUR ---
1638 - PATIENT'S DAUGHTER TOOK PATIENT'S BELONGINGS WITH HER.
== END 2020-08-26 17:15 | DRG 4 ==
LOC: ICU 15:27
PROVIDERS: Internal Medicine; Internal Medicine Pulmonary Disease; Pediatrics; Surgery; ADMIT Hospitalist; ATTEND Hospitalist
PROC: 5A1955Z Respiratory Ventilation, Greater than 96 Consecutive Hours (ICD-10-PCS; principal; 2020-08-13)
PROC: 0BH17EZ Insertion of Endotracheal Airway into Trachea, Via Natural or Artificial Opening (ICD-10-PCS; principal; 2020-08-13)
PROC: 05HY33Z Insertion of Infusion Device into Upper Vein, Percutaneous Approach (ICD-10-PCS; 2020-08-14)
PROC: 0B9G8ZX Drainage of Left Upper Lung Lobe, Via Natural or Artificial Opening Endoscopic, Diagnostic (ICD-10-PCS; 2020-08-14)
PROC: 0W9B3ZZ Drainage of Left Pleural Cavity, Percutaneous Approach (ICD-10-PCS; 2020-08-22)
PROC: 30233N1 Transfusion of Nonautologous Red Blood Cells into Peripheral Vein, Percutaneous Approach (ICD-10-PCS; 2020-08-23)
PROC: 0B110F4 Bypass Trachea to Cutaneous with Tracheostomy Device, Open Approach (ICD-10-PCS; 2020-08-23)
PROC: 0DH68UZ Insertion of Feeding Device into Stomach, Via Natural or Artificial Opening Endoscopic (ICD-10-PCS; 2020-08-23)
DX: A41.52 Sepsis due to Pseudomonas (principal); J12.2 Parainfluenza virus pneumonia; E43 Unspecified severe protein-calorie malnutrition; J85.2 Abscess of lung without pneumonia; J96.21 Acute and chronic respiratory failure with hypoxia; J15.1 Pneumonia due to Pseudomonas; A04.72 Enterocolitis due to Clostridium difficile, not specified as recurrent; J44.1 Chronic obstructive pulmonary disease with (acute) exacerbation; J91.8 Pleural effusion in other conditions classified elsewhere; R65.20 Severe sepsis without septic shock; I10 Essential (primary) hypertension; Z96.651 Presence of right artificial knee joint; J84.10 Pulmonary fibrosis, unspecified; B96.5 Pseudomonas (aeruginosa) (mallei) (pseudomallei) as the cause of diseases classified elsewhere; D63.8 Anemia in other chronic diseases classified elsewhere; Z96.641 Presence of right artificial hip joint; D69.6 Thrombocytopenia, unspecified; T46.5X5A Adverse effect of other antihypertensive drugs, initial encounter; Z88.8 Allergy status to other drugs, medicaments and biological substances; Z88.6 Allergy status to analgesic agent; Z88.1 Allergy status to other antibiotic agents; Z91.040 Latex allergy status; Z99.81 Dependence on supplemental oxygen
CPT/HCPCS: 10078; 27000; 50101; 50386; 50403; 50550; 56525; 62110; 62900